=== PATIENT | male | born 1995 | race Caucasian/White ===

== ENCOUNTER 2021-12-08 23:32 | Emergency (ER) | payer BC, SELFPAY ==
[2021-12-08 23:44] VITALS: BP 138/90; PULSE 87; RESP 18; TEMP 36.6; O2SAT 99; BMI 17.9
--- NOTE | 2021-12-08 23:52 | W.ED.PSYCHS ---
HPI - Psych General: Chief Complaint: Psychiatric Symptoms Stated Complaint: Depression/ MHE Time Seen by Provider: 12/08/21 23:37 Source: patient Mode of arrival: ambulatory Limitations: no limitations History of Present Illness: 26-year-old male who states he had a long history of pression he states last night he drank too much and had made statements about getting a gun and shooting himself. Patient states he is not suicidal or homicidal he is got rid of the gun he want to be evaluated he does not believe he needs inpatient admission he is calm and cooperative here. Associated symptoms: Reports depression Review of Systems Const: Denies: fever(s), chills, body aches or change in appetite Eyes: Denies: blurry vision or eye discomfort ENMT: Denies: throat pain or dental pain Card: Denies: chest pain Resp: Denies: dyspnea GI: Denies: abdominal pain, nausea, vomiting or diarrhea : Denies: dysuria Musc: Denies: neck pain or back pain Skin/Breast: Denies: rash Neuro: Denies: headache(s) Psych: Reports: depression Jacinto/Lymph: Denies: easy bruising All/Imm: Denies: urticaria PFSH ED PFSH: Medical History (Updated 12/09/21 @ 00:37 by Rasheed Briseno MD) Depression Social History (Updated 12/08/21 @ 23:52 by Rasheed Briseno MD) Alcohol intake: current Physical Exam Const: COMMON NORMALS: no acute distress, patient oriented x3 and healthy appearing HENMT: COMMON NORMALS: normocephalic and atraumatic HEAD & SCALP: normocephalic and atraumatic Eye: COMMON NORMALS: Equal, round and reactive pupils present and EOMs intact bilaterally PUPIL: Yes Equal, round and reactive pupils present Neck/C-Spine: COMMON NORMALS: full ROM and supple Chest: COMMONS NORMALS: normal inspection of the chest and normal palpation of entire chest wall Resp: COMMON NORMALS: normal respiratory effort, No retractions, No use of accessory muscles and clear to auscultation bilaterally AUSCULTATION: clear to auscultation bilaterally Cardio: COMMON NORMALS: regular rate, regular rhythm and No murmurs present (Cardio) RATE: regular rate RHYTHM: regular rhythm GI: COMMON NORMALS: Normal to inspection, nondistended, normoactive bowel sounds present, Soft to palpation, non-tender and no masses PALPATION: Yes Soft to palpation Extremity: COMMON NORMALS: normal to inspection and full ROM Neuro: COMMON NORMALS: patient oriented x3, moves all extremities and no focal motor deficits Psych: COMMON NORMALS: mental status grossly normal, Normal thought process present and cooperative MOOD & AFFECT: Yes depressed mood THOUGHT PROCESS: Normal thought process present Skin: COMMON NORMALS: no rashes or lesions noted and no wounds GENERAL SKIN EXAM: no rashes or lesions noted Course Vital Signs: Vital signs: Vital Signs Temperature 97.8 F 12/08/21 23:44 Pulse Rate 87 12/08/21 23:44 Respiratory Rate 18 12/08/21 23:44 Blood Pressure 138/90 12/08/21 23:44 Pulse Oximetry 99 12/08/21 23:44 Oxygen Delivery Me thod 12/08/21 23:44 MDM - Psych Medical Decision Making Patient presents here with depression patient is evaluated by Dr. Shields he does not require inpatient admission we will start him on Prozac and follow-up with [facility] he is to return if worsening he understands agrees to plan. Discharge Plan Discharge Patient Disposition: Home Clinical Impression: Depression Prescriptions: New Prozac 20 mg capsule 20 mg PO DAILY Qty: 60 0RF Discharge Orders: Discharge ED (Routine); Ordered 12/09/21 Ordered By: Rasheed Briseno Discharge Diet: Advance as tolerated Discharge Activity: Use walker/crutches as instructed Coding Level of Care Code ED Architectural Intern for Ricardo Fwd Exam Comprehensive
[2021-12-09 00:40] VITALS: BP 127/75; PULSE 81; RESP 18; TEMP 36.6; O2SAT 99
--- NOTE | 2021-12-09 13:11 | DCPLANNER ---
Addendum entered by Claire Young 12/21/21 07:46: manager retail sales received the following message from Jenna at [facility] regarding follow up appointment: I called him and left a voicemail with call back number Original Note: manager retail sales had message to schedule a follow up appointment for patient with [facility]. manager retail sales emailed patients information to Jenna Dominguez at [facility]. Patients information will be printed and reviewed. Clinic will call patient to schedule an appointment.
== END 2021-12-09 00:41 | disposition home or self-care (01) ==
PROVIDERS: Emergency Provider Emergency Medicine
DX: F32.A Depression, unspecified (principal)
CPT/HCPCS: 99285

== ENCOUNTER 2021-12-10 21:44 | Inpatient (IN) | payer BC, SELFPAY ==
[2021-12-10 21:51] VITALS: BP 141/96; PULSE 76; RESP 16; TEMP 36.8; O2SAT 97
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
[2021-12-10 23:04] LABS: Basophils # 0.1 10^3/uL (0.0-0.1); Basophils % 1.4 %; Eosinophils # 0.2 10^3/uL (0.0-0.8); Eosinophils % 2.1 %; Hematocrit 42.3 % (42.0-52.0); Hemoglobin 14.3 g/dL (11.7-16.6); Lymphocytes # 2.1 10^3/uL (0.8-4.8); Lymphocytes % 26.7 %; Mean Corpuscular HGB Conc 33.8 g/dL (30.0-36.0); Mean Corpuscular Hemoglobin 30.8 pg (28.0-34.0); Mean Platelet Volume 11.5 fL (7.4-10.4); Monocytes # 0.8 10^3/uL (0.2-0.9); Monocytes % 10.4 %; Neutrophils # 4.73 10^3/uL (1.8-7.7); Neutrophils % 59.3 %; Nucleated Red Blood Cells % 0 %; Platelet Count 287 10^3/cmm (130-400); Red Blood Count 4.65 10^6/uL (4.1-5.3); Red Cell Distribution Width 13.1 % (12.1-15.1)
[2021-12-10 23:37] LABS: Alanine Aminotransferase 10 U/L (0-41); Albumin Level 4.3 g/dL (3.5-5.2); Alkaline Phosphatase 76 U/L (40-130); Anion Gap 14.6 (5-19); Aspartate Amino Transferase 18 U/L (0-40); Blood Urea Nitrogen 10 mg/dL (6-20); Calcium 9.1 mg/dL (8.5-10.5); Carbon Dioxide 26 mmol/L (22-29); Chloride 103 mmol/L (98-107); Globulin 2.2 g/dL (1.3-4.6); Glomerular Filtration Rate 116.9 mL/min (90-130); Glucose 97 mg/dL (65-115); Osmolality Calculated 289 mOsm/kg (285-295); Potassium 3.6 mmol/L (3.5-5.1); Sodium 140 mmol/L (136-145); Thyroid Stimulating Hormone 2.09 uIU/mL (0.27-4.20); Total Bilirubin 1.6 mg/dL (0.15-1.2); Total Protein 6.5 g/dL (6.6-8.7)
[2021-12-10 23:38] LABS: Acetaminophen < 5.0 ug/mL (10-30); Alcohol Level < 10 mg/dL (0-10); Salicylate < 0.3 mg/dL (3-10)
[2021-12-10 23:52] LABS: Amphetamines Screen Urine Negative (Negative); Barbiturates Screen Urine Negative (Negative); Benzodiazepines Screen Urine Negative (Negative); Cocaine Screen Urine Negative (Negative); Opiate Screen Urine Negative (Negative); PCP Screen Urine Negative (Negative); THC Screen Urine Positive (Negative)
[2021-12-11 00:26] VITALS: BP 134/82; PULSE 72; RESP 18; O2SAT 97
[2021-12-11] MEDS: hyDROXYzine 25 mg Capsule 50 MG PO (01:29)
[2021-12-11] MEDS: trazodone 50 mg Tablet PO ×2 (01:29→21:06)
[2021-12-11 06:00] VITALS: BP 127/72; PULSE 67; RESP 16; O2SAT 98
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
[2021-12-11 13:44] VITALS: BP 127/79; PULSE 56; RESP 16; TEMP 36.7; O2SAT 99
[2021-12-11] MEDS: fluoxetine 20 mg Capsule PO (14:30)
[2021-12-11 20:02] VITALS: BP 92/68; PULSE 90; RESP 17; TEMP 36.7; O2SAT 96
[2021-12-12 06:00] VITALS: BP 123/65; PULSE 74; RESP 17; TEMP 36.4; O2SAT 97
[2021-12-12] MEDS: fluoxetine 20 mg Capsule PO (09:12)
[2021-12-12] MEDS: nicotine 21 mg Patch 1 PATCH TRANSDERMA (09:25)
[2021-12-12 13:37] VITALS: BP 127/79; PULSE 72; RESP 16; TEMP 36.7; O2SAT 97
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
[2021-12-12 15:34] VITALS: BP 127/79; PULSE 72; RESP 16; TEMP 36.7; O2SAT 97
== END 2021-12-12 15:49 | disposition home or self-care (01) | DRG 881 ==
LOC: ER 21:59 → NP 23:09
PROVIDERS: Emergency Medicine; Admitting Provider Psychiatry & Neurology Psychiatry; Emergency Provider Emergency Medicine; Visit Provider Psychiatry & Neurology Psychiatry
DX: F32.9 Major depressive disorder, single episode, unspecified (principal); R45.851 Suicidal ideations; Z63.0 Problems in relationship with spouse or partner; F17.200 Nicotine dependence, unspecified, uncomplicated; Z62.810 Personal history of physical and sexual abuse in childhood; Z81.8 Family history of other mental and behavioral disorders
CPT/HCPCS: 80053; 80306; 80307; 84443; 85025; 99285